=== PATIENT | male | born 1980 | race Caucasian/White ===

== ENCOUNTER 2018-08-06 09:07 | Emergency (ER) | payer MEDICAID ==
[~2018-08-06] VITALS: Ht 175.3 cm; Wt 63.5 kg
[2018-08-06] MEDS ORDERED: insulin pump (09:10)
[2018-08-06 09:12] VITALS: BP 132/71
--- NOTE | 2018-08-06 09:16 | NUR ---
ED Nurse Note: pt brought by RA from home with mom due to nausea and vomiting since last night. pt denies any abdominal pain. pt had tonsilectomy on Fri. on norco every 4hrs for pain. denies any bleeding from surgical site or SOB. AAO x4. respirations even and non-labored noted. skin warm to touch. pt had insulin pump on left leg for type I DM. on hide stretcher hand. will wait for the further order.
--- NOTE | 2018-08-06 09:21 | Emergency Room Report ---
History of Present Illness General Chief Complaint: Nausea Source: Patient Present Illness HPI Patient is a 38-year-old male who presented after increased nausea and vomiting. Patient had prior history of tonsillectomy 2 days [address] performed [address]. Grullon at [facility]. Patient denies any bleeding. patient reportedly had been taking Tylenol with codeine. He had multiple episodes of emesis. He denies prior codeine use. He states that he had been able to tolerate some oral food yesterday. Patient is type I diabetic and uses an insulin pump. Allergies: Coded Allergies: SULFAMETHOXAZOLE (Verified Allergy, Unknown, 08/06/18) TRIMETHOPRIM (Verified Allergy, Unknown, 08/06/18) Patient History Past Medical History: see triage record Reviewed Nursing Documentation: PMH: Agreed; PSxH: Agreed Nursing Documentation-PMH Past Medical History: No History, Except For Hx Diabetes: Yes - Type 1 Review of Systems All Other Systems: negative except mentioned in HPI Physical Exam Vital Signs Date Time Temp Pulse Resp B/P (MAP) Pulse Ox O2 Delivery O2 Flow Rate FiO2 08/06/18 09:04 97.9 70 20 129/78 (95) 99 Room Air Sp02 EP Interpretation: reviewed, normal General Appearance: normal inspection, well appearing, no apparent distress, alert Head: atraumatic ENT: hearing grossly normal, other - post tonsillectomy with reyes discoloration to posterior pharynx from cautery, no bleeding noted Neck: normal inspection, full range of motion, supple, no bony tend Respiratory: normal inspection, lungs clear, normal breath sounds, no respiratory distress, no retraction, no wheezing Cardiovascular #1: regular rate, rhythm, no edema Gastrointestinal: normal inspection, normal bowel sounds, non tender, soft, no guarding, no hernia Genitourinary: no CVA tenderness Musculoskeletal: normal inspection, back normal, normal range of motion Neurologic: normal inspection, alert, responsive, speech normal Psychiatric: normal inspection, judgement/insight normal, mood/affect normal Skin: normal inspection, normal color, no rash Medical Decision Making Diagnostic Impression: Primary Impression: Nausea and vomiting in adult patient Additional Impressions: Post-tonsillectomy pain Codeine adverse reaction ER Course Patient presented for nausea and vomiting. Differential diagnosis include was not limited to dehydration, codeine induced vomiting, post tonsillectomy hemorrhage among others. Patient was noted to have some initial nausea and vomiting. He was given Zofran. He was started on IV fluids.Patient is noted to have improvement of symptoms. Laboratory studies were unremarkable. He was given prescriptions for medications for symptomatic treatment. He was advised to discontinue use of Tylenol with codeine. He was advised to follow-up with his ENT surgeon Dr. Grullon for recheck of his surgical site. There does not appear to be any active infection or bleeding at this time. Labs Test 08/06/18 09:20 White Blood Count 10.4 K/UL (4.8-10.8) Red Blood Count 5.14 M/UL (4.70-6.10) Hemoglobin 15.3 G/DL (14.2-18.0) Hematocrit 45.2 % (42.0-52.0) Mean Corpuscular Volume 88 FL (80-99) Mean Corpuscular Hemoglobin 29.8 PG (27.0-31.0) Mean Corpuscular Hemoglobin Concent 33.9 G/DL (32.0-36.0) Red Cell Distribution Width 10.9 % (11.6-14.8) Platelet Count 203 K/UL (150-450) Mean Platelet Volume 9.9 FL (6.5-10.1) Neutrophils (%) (Auto) 79.0 % (45.0-75.0) Lymphocytes (%) (Auto) 8.8 % (20.0-45.0) Monocytes (%) (Auto) 9.9 % (1.0-10.0) Eosinophils (%) (Auto) 1.0 % (0.0-3.0) Basophils (%) (Auto) 1.2 % (0.0-2.0) Sodium Level 138 MMOL/L (136-145) Potassium Level 3.6 MMOL/L (3.5-5.1) Chloride Level 99 MMOL/L (98-107) Carbon Dioxide Level 30 MMOL/L (21-32) Anion Gap 9 mmol/L (5-15) Blood Urea Nitrogen 12 mg/dL (7-18) Creatinine 1.0 MG/DL (0.55-1.30) Estimat Glomerular Filtration Rate > 60 mL/min (>60) Glucose Level 186 MG/DL (74-106) Calcium Level 9.5 MG/DL (8.5-10.1) Total Bilirubin 0.7 MG/DL (0.2-1.0) Aspartate Amino Transf (AST/SGOT) 16 U/L (15-37) Alanine Aminotransferase (ALT/SGPT) 20 U/L (12-78) Alkaline Phosphatase 87 U/L (46-116) Total Protein 7.9 G/DL (6.4-8.2) Albumin 4.0 G/DL (3.4-5.0) Globulin 3.9 g/dL Albumin/Globulin Ratio 1.0 (1.0-2.7) Acetone Level Negative (NEGATIVE) Last Vital Signs Date Time Temp Pulse Resp B/P (MAP) Pulse Ox O2 Delivery O2 Flow Rate FiO2 08/06/18 09:15 79 15 Room Air 08/06/18 09:12 97.6 132/71 100 Scripts Lidocaine HCl 2% Viscous (Lidocaine HCl 2% Viscous) 100 Ml Solution 15 ML ORAL QID, #120 ML Prov: Ean Umana MD 08/06/18 Ondansetron Odt* (ZOFRAN ODT*) 4 Mg Tab.rapdis 4 MG BC EVERY 6 HOURS PRN for Nausea & Vomiting, #10 TAB 0 Refills Prov: Ean Umana MD 08/06/18 Ean Umana MD Aug 06, 2018 09:21
[2018-08-06] MEDS ORDERED: D5 1/2NS w/KCl 20mEq 1,000 ML IV SCH (09:30)
--- NOTE | 2018-08-06 09:33 | NUR ---
ED Nurse Note: pt vomitied about 300ml of emesis. meds given as order.
[2018-08-06 09:47] LABS: BASOPHILS % (AUTO) 1.2 % (0.0-2.0); HEMATOCRIT 45.2 % (42.0-52.0); HEMOGLOBIN 15.3 G/DL (14.2-18.0); LYMPHOCYTES % (AUTO) 8.8 % (20.0-45.0); MEAN CORPUSCULAR VOLUME 88 FL (80-99); MONOCYTES % (AUTO) 9.9 % (1.0-10.0); PLATELET COUNT 203 K/UL (150-450); RED BLOOD COUNT 5.14 M/UL (4.70-6.10); RED CELL DISTRIBUTION WIDTH 10.9 % (11.6-14.8); WHITE BLOOD COUNT 10.4 K/UL (4.8-10.8)
[2018-08-06 09:57] LABS: ANION GAP 9 mmol/L (5-15); BLOOD UREA NITROGEN 12 mg/dL (7-18); CALCIUM 9.5 MG/DL (8.5-10.1); CARBON DIOXIDE 30 MMOL/L (21-32); CHLORIDE 99 MMOL/L (98-107); POTASSIUM 3.6 MMOL/L (3.5-5.1); SODIUM 138 MMOL/L (136-145)
[2018-08-06 10:03] LABS: ALANINE AMINOTRANSFERASE 20 U/L (12-78); ALKALINE PHOSPHATASE 87 U/L (46-116); ASPARTATE AMINO TRANSFERASE 16 U/L (15-37); BILIRUBIN,TOTAL 0.7 MG/DL (0.2-1.0)
[2018-08-06] MEDS ORDERED: ONDANSETRON ODT4 MG BC (10:18)
[2018-08-06] MEDS ORDERED: LIDOCAINE VISC100 ML ORAL (10:18)
[2018-08-06 10:37] VITALS: BP 127/70
--- NOTE | 2018-08-06 10:38 | NUR ---
ER DISCHARGE NOTE: Patient is cleared to be discharged per ERMD with mom, pt is aox4, on room air, with stable vital signs. pt was given dc and prescription instructions, pt was able to verbalize understanding, pt id band and iv site removed without complications. pt is able to ambulate with steady gait. pt took all belongings.
== END 2018-08-06 10:38 | disposition home or self-care (01) ==
LOC: EDBD 09:07 → EMR 09:41
DX: R11.2 Nausea with vomiting, unspecified (principal); G89.18 Other acute postprocedural pain; T40.2X5A Adverse effect of other opioids, initial encounter; E10.9 Type 1 diabetes mellitus without complications; Y92.9 Unspecified place or not applicable; Z88.2 Allergy status to sulfonamides; Z88.8 Allergy status to other drugs, medicaments and biological substances; Z98.890 Other specified postprocedural states
CPT/HCPCS: 36415; 80053; 82009; 85025; 96361; 96374; 99284; J2405